=== PATIENT | male | born 1995 | race Caucasian/White ===

== ENCOUNTER 2017-01-03 19:39 | Emergency (ER) | payer BC, OTHER ==
[2017-01-03 20:55] VITALS: BP 143/58
--- NOTE | 2017-01-03 21:13 | ED ---
GI/ HPI - HPI Summary HPI Summary: 21 yr old male with rash to the tip of the penis, onset 3 weeks ago. He was prescribed some type of cream for ring worm, and it was getting better, ran out and it has gotten worse again. Exposure to household pets with loss of fur, and they are on meds now. The patient has follow up with his PMD later this month. He used the cream for two weeks and it ran out. Denies testicular pain, dysuria. - History of Current Complaint Chief Complaint: UCSkin Time Seen by Provider: 01/03/17 20:55 Stated Complaint: SKIN COMPLAINT - Allergy/Home Medications Allergies/Adverse Reactions: Allergies Allergy/AdvReac Type Severity Reaction Status Date / Time No Known Allergies Allergy Verified 01/03/17 20:55 PMH/Surg Hx/FS Hx/Imm Hx - Surgical History Surgery Procedure, Year, and Place: undescended testicle as infant Infectious Disease History: No Infectious Disease History: Denies: Traveled Outside the [place] in Last 30 Days - Family History Known Family History: Positive: None - Social History Alcohol Use: Occasionally Substance Use Type: Reports: None Smoking Status (MU): Current Every Day Smoker Type: Smokeless Tobacco Amount Used/How Often: 1 can every day Length of Time of Smoking/Using Tobacco: started at age 14 Review of Systems Constitutional: Negative Eyes: Negative Positive: other - rash tip right side penis. Negative: burning, dysuria, discharge, pain, urgency Skin: Other - as above Physical Exam Triage Information Reviewed: Yes Vital Signs On Initial Exam: Initial Vitals Temp Pulse Resp BP Pulse Ox 99 F 82 16 143/58 100 01/03/17 20:48 01/03/17 20:48 01/03/17 20:48 01/03/17 20:48 01/03/17 20:48 Vital Signs Reviewed: Yes Appearance: Positive: Well-Appearing, No Pain Distress Skin: Positive: Warm, Other - as below on exam Eyes: Positive: Normal, EOMI Neck: Positive: Supple Respiratory/Lung Sounds: Positive: Clear to Auscultation, Breath Sounds Present Cardiovascular: Positive: Pulses are Symmetrical in both Upper and Lower Extremities Abdomen Description: Positive: Nontender Male Genital Exam: Positive: other - he has lichen type patch on the right distal penis 1.5 cm in diamter, red, with hypopigmented border. No discharge.. Negative: urethral discharge Musculoskeletal: Positive: Normal, Strength/ROM Intact Neurological: Positive: Normal, Sensory/Motor Intact, Alert, Oriented to Person Place, Time, CN Intact II-III Psychiatric: Positive: Normal Diagnostics - Vital Signs Vital Signs Temp Pulse Resp BP Pulse Ox 01/03/17 20:48 99 F 82 16 143/58 100 - Laboratory Lab Statement: Any lab studies that have been ordered have been reviewed, and results considered in the medical decision making process. GIGU Course/Dx - Course Course Of Treatment: 21 yr old male with a likely tinea type rash on tip of penis. WIll Rx with oral diflucan. - Diagnoses Provider Diagnoses: Tinea corporis Discharge - Discharge Plan Condition: Good Disposition: HOME Referrals: VINICIO Muñoz [Primary Care Provider] -
== END 2017-01-03 21:30 | disposition home or self-care (01) ==
LOC: UCCORT 19:39
DX: B35.4 Tinea corporis (principal); F17.220 Nicotine dependence, chewing tobacco, uncomplicated
CPT/HCPCS: 99212; G0463

== ENCOUNTER 2017-11-30 21:14 | Emergency (ER) | payer OTHER ==
[2017-11-30 21:33] VITALS: BP 117/68
[2017-11-30] MEDS ORDERED: Naproxen TAB* 250 MG PO ONE (22:01)
--- NOTE | 2017-11-30 22:04 | RAD ---
Indication: Fall, back pain. 2 views of lumbar spine demonstrate vertebral bodies to be normal in height. Straightening of the normal lordosis is noted. Disc spaces all well-preserved. Pedicles appear intact. IMPRESSION: Straightening of the normal lordosis without fracture.
--- NOTE | 2017-12-08 07:13 | UC ---
Back Pain HPI - HPI Summary HPI Summary: lower back pain x 3 weeks s/p fall on ice 3 weeks ago , injury to his lower back - History of Current Complaint Chief Complaint: UCBackPain Stated Complaint: RIGHT LOWER BACK PAIN/INJ Time Seen by Provider: 11/30/17 21:35 Hx Obtained From: Patient Onset/Duration: Sudden Onset, Lasting Weeks - 3, Still Present Timing: Constant Severity Initially: Moderate Severity Currently: Moderate Pain Intensity: 9 Pain Scale Used: 0-10 Numeric Back Pain: Is Discrete @ - lower back Character: Aching Aggravating Factor(s): Movement, Lifting, Bending, Walking, Cough Alleviating Factor(s): Rest Associated Signs And Symptoms: Negative: Swelling, Redness, Bruising, Fever, Weakness, Numbness, Tingling, Abdominal Pain, Flank Pain - Allergies/Home Medications Allergies/Adverse Reactions: Allergies Allergy/AdvReac Type Severity Reaction Status Date / Time No Known Allergies Allergy Verified 11/30/17 21:33 PMH/Surg Hx/FS Hx/Imm Hx Previously Healthy: Yes - Surgical History Surgical History: Yes Surgery Procedure, Year, and Place: undescended testicle as - Family History Known Family History: Positive: None Negative: Diabetes - Social History Alcohol Use: Occasionally Substance Use Type: None Smoking Status (MU): Current Every Day Smoker Type: Smokeless Tobacco Amount Used/How Often: 1 can every day Length of Time of Smoking/Using Tobacco: started at age 14 - Immunization History Most Recent Influenza Vaccination: yes Review of Systems Constitutional: Negative Skin: Negative Eyes: Negative ENT: Negative Respiratory: Negative Cardiovascular: Negative Gastrointestinal: Negative Is Patient Immunocompromised?: No All Other Systems Reviewed And Are Negative: Yes Physical Exam Triage Information Reviewed: Yes Appearance: Well-Appearing, No Pain Distress, Well-Nourished Vital Signs: Initial Vital Signs Temp 98.2 F 11/30/17 21:29 Pulse 101 11/30/17 21:29 Resp 18 11/30/17 21:29 BP 117/68 11/30/17 21:29 Pulse Ox 99 11/30/17 21:29 Vital Signs Reviewed: Yes Eyes: Positive: Conjunctiva Clear ENT: Positive: Normal ENT inspection, Hearing grossly normal, Pharynx normal Neck: Positive: Supple, Nontender, No Lymphadenopathy Respiratory: Positive: Chest non-tender, Lungs clear, Normal breath sounds, No respiratory distress Cardiovascular: Positive: RRR, No Murmur, Pulses Normal, Brisk Capillary Refill Abdominal Exam: Normal Abdomen Description: Positive: Nontender, Soft. Negative: Distended, Guarding Bowel Sounds: Positive: Present Musculoskeletal: Positive: Other: - lower back : no ecchymosis, no swelling, + tenderness, limited ROM on flexion Back Pain Course/Dx - Differential Dx/Diagnosis Provider Diagnoses: lower back contusion Discharge - Discharge Plan Condition: Stable Disposition: HOME Prescriptions: Cyclobenzaprine TAB* [Flexeril 10 MG TAB*] 10 mg PO BID PRN #20 tab PRN Reason: Pain Naproxen 500 mg PO BID #20 tablet Patient Education Materials: Low Back Strain (ED) Referrals: VINICIO Muñoz [Primary Care Provider] - 7 Days
== END 2017-11-30 22:11 | disposition home or self-care (01) ==
LOC: UCCORT 21:14
DX: S30.0XXA Contusion of lower back and pelvis, initial encounter (principal); W00.0XXA Fall on same level due to ice and snow, initial encounter; Y93.9 Activity, unspecified; Y92.9 Unspecified place or not applicable; F17.220 Nicotine dependence, chewing tobacco, uncomplicated
CPT/HCPCS: 72100; 99212; A9270-GY; G0463